=== PATIENT | male | born 2000 | race Hispanic/Latino ===

== ENCOUNTER 2021-09-26 18:21 | Emergency (ER) | payer MEDICAID ==
[~2021-09-26] VITALS: Ht 182.9 cm; Wt 106.6 kg
[2021-09-26] MEDS ORDERED: TETANUS/DIPHTHERIA TOXOID [ADULT] 0.5 ML VIAL IM ONE (20:00)
[2021-09-26] MEDS ORDERED: IBUPROFEN 600 MG TABLET PO ONE (20:00)
[2021-09-26] MEDS ORDERED: NEOMY SULF/BACITRA/POLYMYXIN B 1 EACH PACKET TP ONE (20:00)
[2021-09-26] MEDS ORDERED: ACETAMINOPHEN 500 MG TABLET PO ONE (20:00)
[2021-09-26 20:57] VITALS: BP 144/88
== END 2021-09-26 20:59 | disposition home or self-care (01) ==
LOC: EDH 18:21
DX: S61.002A Unspecified open wound of left thumb without damage to nail, initial encounter (principal); S61.402A Unspecified open wound of left hand, initial encounter; Z79.1 Long term (current) use of non-steroidal anti-inflammatories (NSAID); X58.XXXA Exposure to other specified factors, initial encounter; Y93.89 Activity, other specified; Y92.89 Other specified places as the place of occurrence of the external cause; Y99.8 Other external cause status
CPT/HCPCS: 73130; 90471; 90472; 90714

== ENCOUNTER 2021-10-29 18:17 | Emergency (ER) | payer MEDICAID ==
[~2021-10-29] VITALS: Ht 185.4 cm; Wt 106.1 kg
[2021-10-29 18:19] VITALS: BP 146/83
[2021-10-29 21:57] LABS: APPEARANCE,URINE Clear (CLEAR); BILIRUBIN,URINE Negative (NEGATIVE); COLOR,URINE Yellow (YELLOW); GLUCOSE, URINE (UA) Negative (NEGATIVE); KETONES,URINE Negative (NEGATIVE); LEUKOCYTE ESTERASE ,URINE Negative (NEGATIVE); NITRATE,URINE Negative (NEGATIVE); OCCULT BLOOD,URINE Negative (NEGATIVE); PROTEIN,URINE Negative (NEGATIVE)
[2021-10-29] MEDS ORDERED: AZITHROMYCIN 250 MG TABLET PO ONE (22:30)
[2021-10-29] MEDS ORDERED: CEFTRIAXONE 1G VIAL IM ONE (22:30)
[2021-10-29] MEDS ORDERED: PHEN-847 PO (22:43)
[2021-10-29] MEDS ORDERED: DOXY-336 PO (22:43)
[2021-10-29] MEDS ORDERED: IBUP-2070 PO (22:43)
== END 2021-10-29 23:20 | disposition home or self-care (01) ==
LOC: EDH 18:17
DX: R30.0 Dysuria (principal); R33.9 Retention of urine, unspecified; Z72.53 High risk bisexual behavior; Z79.899 Other long term (current) drug therapy
CPT/HCPCS: 81003; 87088; 96372; 99284; J0696